=== PATIENT | male | born 1975 | race Caucasian/White ===

== ENCOUNTER 2022-07-15 18:59 | Emergency (ER) | payer OTHER, SELFPAY ==
[2022-07-15 19:21] VITALS: BP 158/88; PULSE 79; RESP 18; TEMP 36.4; O2SAT 96
--- NOTE | 2022-07-15 19:39 | W.ED.ABDPA2 ---
HPI - Abdominal Pain General: Chief Complaint: Abdominal Pain Stated Complaint: lower right side abd pain Time Seen by Provider: 07/15/22 19:31 History of Present Illness: 47-year-old male patient comes in today with complaints of right lower abdominal pain radiating up into the right flank that has resolved since arriving to the ER. Patient reports no history of urinary calculi. Patient has been working outside quite a bit and is questionable about the amount of fluids he has been drinking. Patient appears nontoxic. Patient appears in no pain at this time. Associated Symptoms: Reports fever(s) Review of Systems Const: Reports: fever(s) GI: Reports: abdominal pain PFS ED PFSH: Medical History (Updated 07/15/22 @ 20:07 by YARIEL Rajan) Abscess Abscess of left thigh Social History Smoking and tobacco status: never smoked Physical Exam Const: COMMON NORMALS: alert HENMT: COMMON NORMALS: normocephalic HEAD & SCALP: normocephalic Neck/C-Spine: COMMON NORMALS: full ROM Resp: COMMON NORMALS: normal respiratory effort Cardio: COMMON NORMALS: regular rate RATE: regular rate GI: COMMON NORMALS: Soft to palpation INSPECTION: Yes normal to inspection PALPATION: Yes Soft to palpation and No Tenderness to palpation present (GI) : COMMON NORMALS: Yes no CVA tenderness BLADDER/KIDNEY EXAM: Yes no CVA tenderness Back/Pelvis: COMMON NORMALS: no CVA tenderness Extremity: COMMON NORMALS: normal to inspection Neuro: SENSORIUM/ORIENTATION: Yes alert Skin: COMMON NORMALS: turgor normal GENERAL SKIN EXAM: turgor normal Course Vital Signs: Vital signs: Vital Signs Temperature 97.5 F L 07/15/22 19:21 Pulse Rate 79 07/15/22 19:21 Respiratory Rate 18 07/15/22 19:21 Blood Pressure 158/88 07/15/22 19:21 Pulse Oximetry 96 07/15/22 19:21 Oxygen Delivery Me thod 07/15/22 19:21 MDM - Abdominal Pain Medical Decision Making 47-year-old male patient comes in today with complaints of right lower abdominal pain radiating to his right flank. Patient reports that as he was admitted to the emergency room the pain has subsided and has gone completely away now. Patient reported pain for the last 1 to 2 hours but did not improve with walking around or having a bowel movement. Differential diagnosis includes but not limited to appendicitis, renal calculi, urinary tract infection. Since pain and symptoms have completely resolved believe the patient probably had a renal calculi that had resolved. Urine was sent to lab patient did not want to wait for results since he felt normal now he felt that he did not need to be in the ER anymore. Reviewed red flags with patient recommendations for return to the ER for worsening symptoms. Patient reported understanding agreed to plan. Discharge Plan Discharge Patient Disposition: Home Clinical Impression: Renal colic on right side Condition: Stable Prescriptions: No Action sulfamethoxazole-trimethoprim [Bactrim DS] 800-160 mg tablet 1 tab PO BID 10 Days Qty: 20 0RF clindamycin HCl 300 mg capsule 300 mg PO Q6H 10 Days Qty: 40 0RF ciprofloxacin HCl 750 mg tablet 750 mg PO BID 10 Days Qty: 20 0RF Discharge Orders: Discharge ED (Routine); Ordered 07/15/22 Ordered By: Austin Castañeda Discharge Diet: Usual diet Discharge Activity: Increase activity as tolerated Patient Instructions: Renal Colic (ED) Activity Restrictions/Additional Instructions: Home and rest. Drink plenty of fluids. Follow-up with primary care for further instruction. Return to ER for worsening symptoms such as blood in urine, high fever greater than 100.4, or new concerns. Coding Level of Care Code ED [employer] for [employer]
[2022-07-15 20:18] LABS: Urine Appearance Cloudy (CLEAR); Urine Color Yellow (Yellow)
[2022-07-15 20:19] LABS: Add Urine Microscopic? YES; Bilirubin Urine Neg (Negative); Blood Urine 3+ (Negative); Glucose Urine UA Norm (Normal); Ketones Urine 1+ (Negative); Leukocyte Esterase Urine Negative (Negative); Nitrate Urine Negative (Negative); Protein Urine Trace (Negative); Urobilinogen Urine Norm (Negative); pH Urine 5 (5-7)
[2022-07-15 20:21] LABS: Add Urine Culture? No; Mucus Urine 1+ /hpf; RBC Urine TOO NUMEROUS TO CNT /hpf (0-2); Squamous Epithelial Cell Urine 0-4 /hpf (0-5); WBC Urine 0-4 /hpf (0-5)
== END 2022-07-15 20:30 | disposition home or self-care (01) ==
PROVIDERS: Emergency Provider Nurse Practitioner Family
DX: N23 Unspecified renal colic (principal)
CPT/HCPCS: 81001; 99282

== ENCOUNTER → 2022-07-25 10:19 | Outpatient (BNVA) | payer OTHER, SELFPAY | PROVIDERS: Visit Provider Registered Nurse Neonatal Intensive Care | DX: N39.0 Urinary tract infection, site not specified (principal); N20.0 Calculus of kidney | CPT/HCPCS: 81000 ==